=== PATIENT | female | born 1965 | race Caucasian/White ===

== ENCOUNTER 2018-02-03 13:20 | Outpatient (CLI) | payer OTHER ==
--- NOTE | 2018-02-04 10:57 | EEG ---
Referring Physician: Alona MIGUEL EEG # [id number] TEST TYPE: ROUTINE OUTPATIENT REPORT: AN EEG USING THE [employer] TEN-TWENTY SYSTEM OF ELECTRODE PLACEMENT WAS PERFORMED. The waking background is a high amplitude 9-10 hertz Alpha frequency. The patient remained awake throughout the study. Hyperventilation and photic stimulation were unremarkable. No epileptiform features were seen. IMPRESSION: THIS IS A NORMAL AWAKE EEG. Core Shaper Sides: MIMA Cheese Cook: ELIZA HENSLEY
== END 2018-02-03 13:21 | disposition home or self-care (01) ==
LOC: EEG 13:20
PROVIDERS: ATTEND Psychiatry & Neurology Neurology
DX: G43.109 Migraine with aura, not intractable, without status migrainosus (principal)
CPT/HCPCS: 95816